=== PATIENT | female | born 2000 | race Caucasian/White ===

== ENCOUNTER 2020-08-19 15:00 | Emergency (ER) | payer SELFPAY ==
[~2020-08-19] VITALS: Ht 162.6 cm; Wt 78.1 kg
[2020-08-19 16:52] LABS: BILIRUBIN,URINE NEGATIVE (NEG); CLARITY,URINE CLEAR; COLOR,URINE YELLOW; NITRITE,URINE NEGATIVE (NEG); PROTEIN,URINE NEGATIVE (NEG-TRACE); UROBILINOGEN,URINE 0.2 mg/dL (0.2 mg/dL)
[2020-08-19 16:58] LABS: BACTERIA,URINE 0 /HPF (0-FEW); RBC,URINE 0 /HPF (0-2); WBC,URINE 0 /HPF (0-4)
--- NOTE | 2020-08-19 17:32 | EKG ---
[facility] [address] [place] [address] Test Date: 2020-08-19 Test Time: 15:19:06 Pat Name: KRISTA LEE Department: Room: Gender: F [employer]: : [id number] Requested By: EFRA IBRAHIM Order Number: [id number] Reading MD: Measurements Intervals [place] Rate: 75 P: 38 CO: 142 QRS: 49 QRSD: 84 T: 26 QT: 362 QTc: 407 Interpretive Statements SINUS ARRHYTHMIA OTHERWISE NORMAL ECG RI6.02 No previous ECG available for comparison
[2020-08-19] MEDS ORDERED: IV NORMAL SALINE 1000ML BAG 1,000 ML IV ONE (17:45)
[2020-08-19 17:51] LABS: BASO # 0.1 x10^3/uL (0.0-0.2); BASO % 1 % (0-3); EOS # 0.1 x10^3/uL (0.0-0.7); EOS % 1 % (0-3); HEMATOCRIT 39.6 % (36.0-47.0); HEMOGLOBIN 13.6 g/dL (12.0-15.5); LYMPH # 2.6 x10^3/uL (1.0-4.8); LYMPH % 27 % (24-48); MEAN CORPUSCULAR HEMOGLOBIN 30 pg (25-35); MEAN CORPUSCULAR HGB CONC 34 g/dL (31-37); MEAN CORPUSCULAR VOLUME 87 fL (79-100); MONO # 0.7 x10^3/uL (0.0-1.1); MONO % 7 % (0-9); NEUT # 6.3 x10^3/uL (1.8-7.7); NEUT % 65 % (31-73); PLATELET COUNT 278 x10^3/uL (140-400); RED BLOOD COUNT 4.55 x10^6/uL (3.50-5.40); RED CELL DISTRIBUTION WIDTH 13.6 % (11.5-14.5); WHITE BLOOD COUNT 9.7 x10^3/uL (4.0-11.0)
[2020-08-19 18:26] LABS: CREATININE 0.9 mg/dL (0.6-1.0); GFR 79.8; POTASSIUM 3.7 mmol/L (3.5-5.1)
[2020-08-19 18:32] LABS: ALBUMIN/GLOBULIN RATIO 1.2 (1.0-1.7); TOTAL BILIRUBIN 0.2 mg/dL (0.2-1.0); TOTAL PROTEIN 7.4 g/dL (6.4-8.2)
[2020-08-19 18:41] LABS: CREATINE KINASE 68 U/L (26-192)
--- NOTE | 2020-08-19 19:25 | PHYS DOC ---
Past Medical History Past Medical History: No Pertinent History Past Surgical History: No Surgical History Smoking Status: Current Every Day Smoker Alcohol Use: Occasionally General Adult EDM: Chief Complaint: SHORTNESS OF BREATH HPI: HPI: Patient is a 20 year old female with no significant medical history who present s today to be evaluated after having a syncope episode at work. Patient states she got overheated and passed out. Denies any symptoms right now. Review of Systems: Review of Systems: Constitutional: Denies fever or chills. [] Eyes: Denies change in visual acuity. [] HENT: Denies nasal congestion or sore throat. [] Respiratory: Denies cough or shortness of breath. [] Cardiovascular: Reports a syncope episode denies chest pain or edema. [] GI: Denies abdominal pain, nausea, vomiting, bloody stools or diarrhea. [] : Denies dysuria. [] Musculoskeletal: Denies back pain or joint pain. [] Integument: Denies rash. [] Neurologic: Denies headache, focal weakness or sensory changes. [] Psychiatric: Denies depression or anxiety. [] Heart Score: C/O Chest Pain: N/A Risk Factors: Risk Factors: DM, Current or recent (<one month) smoker, HTN, HLP, family history of CAD, obesity. Risk Scores: Score 0 - 3: 2.5% MACE over next 6 weeks - Discharge Home Score 4 - 6: 20.3% MACE over next 6 weeks - Admit for Clinical Observation Score 7 - 10: 72.7% MACE over next 6 weeks - Early Invasive Strategies Current Medications: Current Medications Medications (Trade) Dose Ordered Sig/Yahaira Start Time Stop Time Status Last Admin Dose Admin Sodium Chloride 1,000 ml @ 1,000 mls/hr 1X ONCE 08/19/20 17:45 08/19/20 18:44 DC 08/19/20 18:05 1,000 MLS/HR Allergies: Allergies: Allergies Coded Allergies Type Severity Reaction Last Updated Verified No Known Drug Allergies 08/19/20 No Physical Exam: PE: Constitutional: Well developed, well nourished, no acute distress, non-toxic appearance. [] HENT: Normocephalic, atraumatic, bilateral external ears normal, oropharynx moist, no oral exudates, nose normal. [] Eyes: PERRLA, EOMI, conjunctiva normal, no discharge. [] Neck: Normal range of motion, no tenderness, supple, no stridor. [] Cardiovascular:Heart rate regular rhythm, no murmur [] Lungs & Thorax: Bilateral breath sounds clear to auscultation [] Abdomen: Bowel sounds normal, soft, no tenderness, no masses, no pulsatile masses. [] Skin: Warm, dry, no erythema, no rash. [] Back: No tenderness, no CVA tenderness. [] Extremities: No tenderness, no cyanosis, no clubbing, ROM intact, no edema. [] Neurologic: Alert and oriented X 3, normal motor function, normal sensory function, no focal deficits noted. [] Psychologic: Affect normal, judgement normal, mood normal. [] Current Patient Data: Labs: Laboratory Tests Test 08/19/20 15:28 08/19/20 15:31 08/19/20 15:35 08/19/20 17:45 Glucose (Fingerstick) 97 mg/dL (70-99) Urine Collection Type Unknown Urine Color Yellow Urine Clarity Clear Urine pH 7.0 (<5.0-8.0) Urine Specific [place] Level <=1.005 (1.000-1.030) Urine Protein Negative mg/dL (NEG-TRACE) Urine Glucose (UA) Negative mg/dL (NEG) Urine Ketones (Stick) Negative mg/dL (NEG) Urine Blood Small (NEG) Urine Nitrite Negative (NEG) Urine Bilirubin Negative (NEG) Urine Urobilinogen Dipstick 0.2 mg/dL (0.2 mg/dL) Urine Leukocyte Esterase Negative (NEG) Urine RBC 0 /HPF (0-2) Urine WBC 0 /HPF (0-4) Urine Squamous Epithelial Cells Few /LPF Urine Bacteria 0 /HPF (0-FEW) POC Urine HCG, Qualitative Hcg negative (Negative) White Blood Count 9.7 x10^3/uL (4.0-11.0) Red Blood Count 4.55 x10^6/uL (3.50-5.40) Hemoglobin 13.6 g/dL (12.0-15.5) Hematocrit 39.6 % (36.0-47.0) Mean Corpuscular Volume 87 fL (79-100) Mean Corpuscular Hemoglobin 30 pg (25-35) Mean Corpuscular Hemoglobin Concent 34 g/dL (31-37) Red Cell Distribution Width 13.6 % (11.5-14.5) Platelet Count 278 x10^3/uL (140-400) Neutrophils (%) (Auto) 65 % (31-73) Lymphocytes (%) (Auto) 27 % (24-48) Monocytes (%) (Auto) 7 % (0-9) Eosinophils (%) (Auto) 1 % (0-3) Basophils (%) (Auto) 1 % (0-3) Neutrophils # (Auto) 6.3 x10^3/uL (1.8-7.7) Lymphocytes # (Auto) 2.6 x10^3/uL (1.0-4.8) Monocytes # (Auto) 0.7 x10^3/uL (0.0-1.1) Eosinophils # (Auto) 0.1 x10^3/uL (0.0-0.7) Basophils # (Auto) 0.1 x10^3/uL (0.0-0.2) Test 08/19/20 18:10 Sodium Level 143 mmol/L (136-145) Potassium Level 3.7 mmol/L (3.5-5.1) Chloride Level 107 mmol/L (98-107) Carbon Dioxide Level 27 mmol/L (21-32) Anion Gap 9 (6-14) Blood Urea Nitrogen 9 mg/dL (7-20) Creatinine 0.9 mg/dL (0.6-1.0) Estimated GFR (Cockcroft-Gault) 79.8 BUN/Creatinine Ratio 10 (6-20) Glucose Level 81 mg/dL (70-99) Calcium Level 9.0 mg/dL (8.5-10.1) Total Bilirubin 0.2 mg/dL (0.2-1.0) Aspartate Amino Transferase (AST) 14 U/L (15-37) L Alanine Aminotransferase (ALT) 17 U/L (14-59) Alkaline Phosphatase 52 U/L (46-116) Creatine Kinase 68 U/L (26-192) Creatine Kinase MB (Mass) 0.8 ng/mL (0.0-3.6) Creatine Kinase MB Relative Index % (0-4) Total Protein 7.4 g/dL (6.4-8.2) Albumin 4.0 g/dL (3.4-5.0) Albumin/Globulin Ratio 1.2 (1.0-1.7) Laboratory Tests 08/19/20 17:45 Laboratory Tests 08/19/20 18:10 Vital Signs: Vital Signs Date Time Temp Pulse Resp B/P (MAP) Pulse Ox O2 Delivery O2 Flow Rate FiO2 08/19/20 18:23 75 112/53 (72) 98 Room Air 08/19/20 15:00 98.1 24 98.1 EKG: EK interpreted by Dr. Clarke sinus rhythm heart rate 75 no STEMI [] Radiology/Procedures: Radiology/Procedures: [] Course & Med Decision Making: Course & Med Decision Making Pertinent Labs and Imaging studies reviewed. (See chart for details) This is a 20-year-old female patient presenting to the ED today complaining of a syncope episode after she got overheated at work. Labs are negative, EKG is negative. Given IV fluids. Feeling better. Discharge to home. Follow-up with PCP Trevor Disclaimer: Trevor Disclaimer: This electronic medical record was generated, in whole or in part, using a voice recognition dictation system. Departure Departure Impression: Primary Impression: Syncope Qualified Codes: R55 - Syncope and collapse Additional Impression: Heat exhaustion Qualified Codes: T67.5XXA - Heat exhaustion, unspecified, initial encounter Disposition: HOME / SELF CARE / HOMELESS Condition: STABLE Referrals: JOEY VAZQUEZ (PCP) Follow-up in 1 week Patient Instructions: Heat Illness-SportsMed, Syncope Additional Instructions: You were evaluated in the emergency room with heat exhaustion illness. We recommend you try and stay in a cool environment. Hydrate yourself. Follow-up with your doctor next week ESTEFANY CRUZ [employer] Aug 19, 2020 19:25
[2020-08-19 19:30] VITALS: BP 104/59
== END 2020-08-19 19:45 | disposition home or self-care (01) ==
LOC: ER 15:00
DX: T67.5XXA Heat exhaustion, unspecified, initial encounter (principal); R55 Syncope and collapse; F17.200 Nicotine dependence, unspecified, uncomplicated; X58.XXXA Exposure to other specified factors, initial encounter; Y93.89 Activity, other specified; Y92.89 Other specified places as the place of occurrence of the external cause; Y99.8 Other external cause status
CPT/HCPCS: 36415; 80053; 81001; 81025; 82553; 82962; 85025; 93005; 96360; 96361; 99285; J7030